=== PATIENT | male | born 1990 | race Caucasian/White ===

== ENCOUNTER 2021-04-11 09:08 | Outpatient (CLI) | payer MEDICAID ==
[2021-04-11 15:53] LABS: BUN - BLOOD UREA NITROGEN 16 mg/dL (6-20); CALCIUM 9.1 mg/dL (8.5-10.3); CARBON DIOXIDE - CO2 29 mmol/L (21-32); CHLORIDE 99 mmol/L (101-111); CHOL/HDL RATIO 3.1 (<5.0); CHOLESTEROL 135 mg/dL; CREATININE 0.9 mg/dL (0.6-1.2); GFR - MDRD 99 (>89); GLUCOSE 87 mg/dL (70-100); HDL CHOLESTEROL 43 mg/dL; LDL CHOLESTEROL,CALCULATED 78 mg/dL; LDL/HDL RATIO 1.8 (<3.6); POTASSIUM 3.8 mmol/L (3.5-5.0); SODIUM 137 mmol/L (135-145); TRIGLYCERIDES 72 mg/dL; VLDL CHOLESTEROL 14 mg/dL
[2021-04-11 20:57] LABS: ESTIMATED AVERAGE GLUCOSE 105 mg/dL (70-100); HEMOGLOBIN A1c% 5.3 % (4.27-6.07)
== END 2021-04-11 09:09 | disposition home or self-care (01) ==
LOC: LAB.S 09:08
PROVIDERS: ATTEND Physician Assistant
DX: Z87.890 Personal history of sex reassignment (principal); Z79.890 Hormone replacement therapy
CPT/HCPCS: 36415; 80048; 80061; 82670; 83036; 83721; 84403

== ENCOUNTER 2022-12-04 12:16 | Emergency (ER) | payer MEDICAID, OTHER ==
[2022-12-04 12:27] VITALS: BP 108/69
== END 2022-12-04 13:54 | disposition left against medical advice (07) ==
LOC: EDSEX → ED 12:16
DX: Z53.21 Procedure and treatment not carried out due to patient leaving prior to being seen by health care provider (principal)

== ENCOUNTER 2022-12-05 13:07 | Emergency (ER) | payer OTHER ==
[2022-12-05 13:15] VITALS: BP 111/71
--- NOTE | 2022-12-05 13:57 | XRAY Report ---
PROCEDURE: Ribs w/PA Chest LT INDICATIONS: trauma TECHNIQUE: 2 views of the left ribs were acquired, along with a single view chest. COMPARISON: None FINDINGS: Bones: No displaced fracture is identified. Soft tissues: No suspicious calcifications. Lungs are clear. Heart size is normal. No pleural effusio ns. IMPRESSION: No acute radiographic abnormality. If there is high concern for occult injury, consider repeat radiog clara or cross-sectional imaging. Reviewed by: Bobby Busby MD on 12/05/2022 1:56 PM PDT Approved by: Bobby Busby MD on 12/05/2022 1:56 PM PDT Station ID: [id number]
[2022-12-05] MEDS ORDERED: HYDROcod/ACETAM 5/325 MG TABLET PO STA (14:26)
--- NOTE | 2022-12-05 14:34 | ED Physician Documentation ---
History of Present Illness - Stated complaint Stated Complaint: RIB PX - Chief complaint Chief Complaint: Trauma Ch/Bk - History obtained from History obtained from: Patient - History of Present Illness Timing: How many days ago (2) Pain level max: 5 Pain level now: 4 - Additonal information Additional information: Patient is 32 years old and fell 2 days ago on a tree, complaining of left rib pain. Worse with movement, better with rest. No head, neck, back pain. Also worse with deep breath and coughing. No abdominal pain. No nausea or vomiting. No hemoptysis. Review of Systems Constitutional: denies: Fever GI: denies: Vomiting, Diarrhea Musculoskeletal: denies: Neck pain, Back pain Neurologic: denies: Headache, Head injury PD PAST MEDICAL HISTORY - Past Medical History Past Medical History: Yes Cardiovascular: None Respiratory: Asthma Neuro: Seizure disorder Endocrine/Autoimmune: None GI: None [employer]: None : None HEENT: None Musculoskeletal: None Derm: None - Past Surgical History Past Surgical History: No - Present Medications Home Medications: Ambulatory Orders Medication Instructions Recorded Confirmed HYDROcod/ACETAM 5/325 [[place] 5/325] 1 - 2 ea PO Q6H PRN #14 tablet 12/05/22 - Allergies Allergies/Adverse Reactions: Allergies Allergy/AdvReac Type Severity Reaction Status Date / Time No Known Drug Allergies Allergy Verified 12/05/22 13:15 - Social History Does the pt smoke?: Yes Smoking Status: Current every day smoker Does the pt have substance abuse?: Yes Substance Use and Type: Marijuana - Immunizations Immunizations are current?: Yes PD ED PE NORMAL - Vitals Vital signs reviewed: Yes - General General: Alert and oriented X 3, No acute distress - Cardiac Cardiac: RRR, Strong equal pulses - Respiratory Respiratory: No respiratory distress, Clear bilaterally - Derm Derm: Warm and dry - Neuro Neuro: Alert and oriented X 3 - Psych Psych: Normal mood, Normal affect - Free text exam Free text exam: Tender to palpation over the left anterior ribs, approximately 9 and 10. No crepitus. No deformity. No skin changes. Results - Vitals Vitals: Vital Signs - 24 hr 12/05/22 13:13 Temperature 36.8 C Heart Rate 79 Respiratory 20 Rate Blood Pressure 111/71 O2 Saturation 100 Oxygen O2 Source Room air - Rads (name of study) L rib xray Relevant Findings:: Final report received, See rad report PD Medical Decision Making - ED course Complexity details: reviewed results, considered differential, d/w patient ED course: Patient with left rib pain. No acute findings on x-ray. Possible contusion versus nondisplaced fracture. We will place on pain medication for home and have the patient follow-up with their PCP for further care. No evidence of pneumothorax, hemothorax, displaced rib fracture. Patient counseled regarding signs and symptoms for which I believe and urgent re-evaluation would be necessary. Patient with good understanding of and agreement to plan and is comfortable going home at this time This document was made in part using voice recognition software. While efforts are made to proofread this document, sound alike and grammatical errors may occur. Departure - Departure Disposition: 01 Home, Self Care Clinical Impression: Contusion of rib Qualifiers: Encounter type: initial encounter Laterality: left Qualified Code(s): S20.212A - Contusion of left front wall of thorax, initial encounter Condition: Good Instructions: ED Contusion Vs Minor Fx Rib Follow-Up: your,doctor in 1 week [Other] Prescriptions: HYDROcod/ACETAM 5/325 [[place] 5/325] 1 - 2 ea PO Q6H PRN #14 tablet PRN Reason: Pain Comments: Your prescription was sent to [facility] in [place]. Please follow-up with your doctor for further care. Please return if you worsen. Your x-ray does not show any visible rib fractures today. I am prescribing a short course of narcotic pain medication for you. These are potentially dangerous and addictive medications that should be used carefully. These medications may constipate you. Take an wkwj-wnl-oqyslnj stool softener (docusate) twice daily with plenty of water while taking these medications. If you go 24 hours without a bowel movement, take omrd-tzc-aikjvey miralax, per package instructions. Do not drink or drive while taking these medications. If you received narcotic or sedating medications while in the emergency department, do not drive for 24 hours. Store this medication in a safe, secure place and out of reach of children. It is a violation of federal law to give or sell this medication to another person or to use in a manner other than prescribed. The ED will not refill narcotic prescriptions, including prescriptions lost or stolen. To dispose of unwanted medications: 1. [facility] at [address] in [place] has a medication drop box. They accept prescription medications (in pill form) Sunday through Sunday 9:00 a.m. to 5:00 p.m. 2. [facility] accepts prescription medications (in pill form only) for disposal year round. Call for more information. 3. Contact the [facility] for the next [facility] sponsored prescription drug collection event. , [phone], or [phone]; Forms: Activity restrictions Discharge Date/Time: 12/05/22 14:39
== END 2022-12-05 14:39 | disposition home or self-care (01) ==
LOC: EDSEX → ED 13:07
DX: S20.212A Contusion of left front wall of thorax, initial encounter (principal); W20.8XXA Other cause of strike by thrown, projected or falling object, initial encounter; F17.200 Nicotine dependence, unspecified, uncomplicated
CPT/HCPCS: 71101; 99283; A9270